=== PATIENT | male | born 1960 | race Two or more races ===

== ENCOUNTER 2022-07-15 17:50 | Emergency (ER) | payer MEDICAID, OTHER ==
[~2022-07-15] VITALS: Ht 182.9 cm; Wt 91.7 kg
[2022-07-15 18:07] VITALS: BP 118/76
== END 2022-07-16 00:14 | disposition home or self-care (01) ==
LOC: ER 17:50
DX: M25.512 Pain in left shoulder (principal); R10.12 Left upper quadrant pain; V43.52XA Car driver injured in collision with other type car in traffic accident, initial encounter; Y93.89 Activity, other specified; Y92.89 Other specified places as the place of occurrence of the external cause; Y99.8 Other external cause status
CPT/HCPCS: 93005

== ENCOUNTER 2023-05-06 17:31 | Emergency (ER) | payer MEDICAID, OTHER ==
[~2023-05-06] VITALS: Ht 182.9 cm; Wt 91.0 kg
[2023-05-06 19:02] LABS: Albumin 4.1 g/dL (3.4-5.0); Calcium 8.4 mg/dL (8.5-10.1); Potassium 4.6 mmol/L (3.5-5.1)
[2023-05-06 19:04] LABS: Basophils # (auto) 0 10 ^3/uL (0-0.2); Basophils % (auto) 0.4 % (0.0-2.0); Eosinophils # (auto) 0.1 10 ^3/uL (0-0.8); Hematocrit 42.7 % (41.0-53.0); Hemoglobin 14.8 g/dL (13.5-17.5); Lymphocytes # (auto) 2.3 10 ^3/uL (0.4-5.4); Mean Corpuscular Hemoglobin 31.1 pg (28.0-32.0); Mean Corpuscular Hgb Conc. 34.5 g/dL (32.0-36.0); Monocytes # (auto) 0.6 10 ^3/uL (0-1.3); Monocytes % (auto) 8.6 % (0.0-12.0); Neutrophils # (auto) 3.8 10 ^3/uL (1.6-8.6); Nucleated Red Blood Cells % 0.1 %; Red Blood Cells 4.75 10^6/uL (4.5-5.90); White Blood Cell 6.9 10^3/uL (4.4-10.8)
[2023-05-06 19:05] LABS: BUN/Creatinine Ratio 22.5 (10.0-20.0); Bilirubin, Total 0.2 mg/dL (0.2-1.0); Total Protein 6.6 g/dL (6.4-8.2)
[2023-05-06] MEDS ORDERED: FAMOTIDINE 20 MG TAB PO ONE (20:00)
[2023-05-06] MEDS ORDERED: GLUCAGON EMERG KIT 1mg/1ml IM ONE (20:00)
[2023-05-06] MEDS ORDERED: OMEP-434 PO (20:03)
[2023-05-06 21:10] VITALS: BP 121/76
== END 2023-05-06 21:10 | disposition home or self-care (01) ==
LOC: ER 17:31
DX: R13.10 Dysphagia, unspecified (principal); K29.70 Gastritis, unspecified, without bleeding; R07.89 Other chest pain; Z87.891 Personal history of nicotine dependence; Z79.899 Other long term (current) drug therapy
CPT/HCPCS: 36415; 71046; 80053; 84484; 85025; 93005; 96372; 99285; J1610

== ENCOUNTER → 2023-06-14 | Outpatient (CLI) | payer MEDICAID ==
[~2023-06-14] MED LIST: OMEP-434 PO
[2023-06-14 09:04] LABS: Basophils # (auto) 0 10 ^3/uL (0-0.2); Basophils % (auto) 0.5 % (0.0-2.0); Eosinophils # (auto) 0.1 10 ^3/uL (0-0.8); Eosinophils % (auto) 2.1 % (0.0-7.0); Hematocrit 42.6 % (41.0-53.0); Hemoglobin 14.5 g/dL (13.5-17.5); Lymphocytes % (auto) 34.3 % (10.0-50.0); Mean Corpuscular Hemoglobin 30.6 pg (28.0-32.0); Mean Corpuscular Volume 89.8 fL (80.0-100.0); Monocytes # (auto) 0.5 10 ^3/uL (0-1.3); Monocytes % (auto) 8.1 % (0.0-12.0); Neutrophils # (auto) 3.2 10 ^3/uL (1.6-8.6); Nucleated Red Blood Cells % 0.3 %; Red Blood Cells 4.74 10^6/uL (4.5-5.90); Red Cell Distribution Width 12.9 % (11.8-14.3); White Blood Cell 5.9 10^3/uL (4.4-10.8)
[2023-06-14 09:39] LABS: Potassium 4.3 mmol/L (3.5-5.1)
[2023-06-14 09:50] LABS: Albumin 3.7 g/dL (3.4-5.0); BUN/Creatinine Ratio 21.1 (10.0-20.0); Bilirubin, Total 0.5 mg/dL (0.2-1.0); Calcium 8.8 mg/dL (8.5-10.1); Total Protein 6.5 g/dL (6.4-8.2)
== END | disposition home or self-care (01) ==
LOC: LAB 08:26
PROVIDERS: ATTEND Internal Medicine
DX: E55.9 Vitamin D deficiency, unspecified (principal); R71.0 Precipitous drop in hematocrit
CPT/HCPCS: 36415; 80053; 80061; 82274; 82306; 83036; 84153; 84443; 85025; 86677

== ENCOUNTER 2023-09-18 03:57 | Emergency (ER) | payer MEDICAID ==
[~2023-09-18] VITALS: Ht 182.9 cm; Wt 92.0 kg
[2023-09-18 04:59] LABS: Basophils # (auto) 0 10 ^3/uL (0-0.2); Basophils % (auto) 0.6 % (0.0-2.0); Eosinophils # (auto) 0.2 10 ^3/uL (0-0.8); Eosinophils % (auto) 3.1 % (0.0-7.0); Hematocrit 45.4 % (41.0-53.0); Hemoglobin 15.2 g/dL (13.5-17.5); Lymphocytes % (auto) 31.5 % (10.0-50.0); Mean Corpuscular Hemoglobin 30.5 pg (28.0-32.0); Mean Corpuscular Hgb Conc. 33.6 g/dL (32.0-36.0); Mean Corpuscular Volume 90.7 fL (80.0-100.0); Monocytes # (auto) 0.6 10 ^3/uL (0-1.3); Neutrophils # (auto) 3.5 10 ^3/uL (1.6-8.6); Neutrophils % (auto) 54.8 % (37.0-80.0); Nucleated Red Blood Cells % 0.2 %; Red Cell Distribution Width 13.1 % (11.8-14.3); White Blood Cell 6.4 10^3/uL (4.4-10.8)
[2023-09-18 05:17] LABS: INR 1.08 (0.9-1.15); Partial Thromboplastin Time 26.8 SEC (24.5-34.5); Prothrombin Time 11.3 sec (9.3-11.8)
[2023-09-18 05:19] LABS: Alanine Aminotransferase 26 U/L (7-40); Albumin 4.3 g/dL (3.2-4.8); Alkaline Phosphatase 96 U/L (46-116); Anion Gap 6 (5-15); Aspartate Aminotransferase 15 U/L (13-40); BUN/Creatinine Ratio 17.3 (10.0-20.0); Bilirubin, Total 0.4 mg/dL (0.2-1.0); Blood Urea Nitrogen 17 mg/dL (9-23); Calcium 9.2 mg/dL (8.7-10.4); Carbon Dioxide 27 mmol/L (20-30); Chloride 108 mmol/L (98-107); Potassium 3.8 mmol/L (3.5-5.1); Sodium 141 mmol/L (136-145); Total Protein 6.6 g/dL (5.7-8.2)
[2023-09-18 06:24] LABS: Glucose 100 mg/dL (74-106)
[2023-09-18 12:27] LABS: Urine Bacteria FEW /hpf (None Seen); Urine Blood Negative /uL (Negative); Urine Clarity CLOUDY (Clear); Urine Color Yellow (Yellow); Urine Mucus MODERATE (None Seen); Urine Protein, UAD TRACE (Negative); Urine Specific Gravity 1.036 (1.001-1.035); Urine Urobilinogen Normal (Negative); Urine WBC 23 /hpf (0 - 3); Urine WBC Clumps PRESENT /hpf (None Seen); Urine pH 5.5 (5.0-8.0)
[2023-09-18 13:38] VITALS: BP 118/66; PULSE 66; RESP 18; TEMP 98.6; O2SAT 96
== END 2023-09-18 13:39 | disposition home or self-care (01) ==
LOC: ER 03:57
DX: R06.02 Shortness of breath (principal); F41.1 Generalized anxiety disorder; Z87.891 Personal history of nicotine dependence; Z79.899 Other long term (current) drug therapy
CPT/HCPCS: 36415; 71045; 80053; 81001; 83735; 83880; 84484; 85025; 85379; 85610; 85730; 93005

== ENCOUNTER → 2023-11-29 | Outpatient (CLI) | payer MEDICAID ==
[2023-11-29 08:25] LABS: Alanine Aminotransferase 43 U/L (7-40); Albumin 4.3 g/dL (3.2-4.8); Alkaline Phosphatase 105 U/L (46-116); Anion Gap 6 (5-15); Aspartate Aminotransferase 17 U/L (13-40); BUN/Creatinine Ratio 13.3 (10.0-20.0); Bilirubin, Total 0.6 mg/dL (0.2-1.0); Blood Urea Nitrogen 12 mg/dL (9-23); Calcium 9.4 mg/dL (8.5-10.1); Carbon Dioxide 29 mmol/L (20-30); Chloride 107 mmol/L (98-107); Glucose 116 mg/dL (74-106); Potassium 4.4 mmol/L (3.5-5.1); Sodium 142 mmol/L (136-145); Total Protein 6.4 g/dL (5.7-8.2)
== END | disposition home or self-care (01) ==
LOC: LAB 07:45
PROVIDERS: ATTEND Internal Medicine
DX: R73.9 Hyperglycemia, unspecified (principal)
CPT/HCPCS: 36415; 80053; 83036

== ENCOUNTER → 2024-06-08 | Outpatient (CLI) | payer MEDICAID ==
[2024-06-08 08:01] LABS: Urine Bacteria None Seen /hpf (None Seen)
[2024-06-08 08:50] LABS: Basophils # (auto) 0 10 ^3/uL (0-0.2); Basophils % (auto) 0.7 % (0.0-2.0); Eosinophils # (auto) 0.2 10 ^3/uL (0-0.8); Eosinophils % (auto) 2.8 % (0.0-7.0); Hematocrit 42.3 % (41.0-53.0); Hemoglobin 14.7 g/dL (13.5-17.5); Lymphocytes % (auto) 34.5 % (10.0-50.0); Mean Corpuscular Hemoglobin 31.4 pg (28.0-32.0); Mean Corpuscular Hgb Conc. 34.8 g/dL (32.0-36.0); Mean Corpuscular Volume 90.4 fL (80.0-100.0); Monocytes # (auto) 0.4 10 ^3/uL (0-1.3); Monocytes % (auto) 7.4 % (0.0-12.0); Neutrophils # (auto) 3.1 10 ^3/uL (1.6-8.6); Neutrophils % (auto) 54.6 % (37.0-80.0); Nucleated Red Blood Cells % 0.1 %; Red Blood Cells 4.68 10^6/uL (4.5-5.90); Red Cell Distribution Width 13.3 % (11.8-14.3); White Blood Cell 5.7 10^3/uL (4.4-10.8)
[2024-06-08 09:00] LABS: Urine Blood Negative /uL (Negative); Urine Clarity Clear (Clear); Urine Color Light-Yellow (Yellow); Urine Mucus FEW (None Seen); Urine Protein, UAD Negative (Negative); Urine Specific Gravity 1.025 (1.001-1.035); Urine Urobilinogen Normal (Negative); Urine WBC 1 /hpf (0 - 3); Urine pH 5.5 (5.0-9.0)
[2024-06-08 09:12] LABS: Alanine Aminotransferase 29 U/L (7-40); Alkaline Phosphatase 106 U/L (46-116); Anion Gap 4 (5-15); BUN/Creatinine Ratio 21.1 (10.0-20.0); Blood Urea Nitrogen 19 mg/dL (9-23); Calcium 9.4 mg/dL (8.5-10.1); Carbon Dioxide 28 mmol/L (20-30); Chloride 111 mmol/L (98-107); Glucose 106 mg/dL (74-106); Potassium 4.3 mmol/L (3.5-5.1); Sodium 143 mmol/L (136-145); Triglycerides 131 mg/dL (< 150)
[2024-06-08 09:13] LABS: Albumin 4.2 g/dL (3.2-4.8); Aspartate Aminotransferase 14 U/L (13-40); Cholesterol 198 mg/dL (< 200)
[2024-06-08 09:14] LABS: Bilirubin, Total 0.7 mg/dL (0.2-1.0); HDL Cholesterol 39 mg/dL (40-59); Total Protein 6.3 g/dL (5.7-8.2)
[2024-06-08 09:15] LABS: LDL Cholesterol 139 mg/dL (< 100)
== END | disposition home or self-care (01) ==
LOC: LAB 07:51
PROVIDERS: ATTEND Nurse Practitioner
DX: E78.5 Hyperlipidemia, unspecified (principal); R73.9 Hyperglycemia, unspecified
CPT/HCPCS: 36415; 80053; 80061; 81001; 83036; 84153; 84443; 85025